=== PATIENT | male | born 1990 | race Caucasian/White ===

== ENCOUNTER 2023-04-03 00:28 | Emergency (ER) | payer SELFPAY ==
[~2023-04-03] VITALS: Ht 175.3 cm; Wt 67.8 kg
[2023-04-03 00:30] VITALS: TEMP 98.4
[2023-04-03] MEDS ORDERED: ondansetron 4mg rapidly disintigrating tab PO ONE (00:50)
[2023-04-03] MEDS ORDERED: acetaminophen 1,000mg/100ml IV 100 ML IV ONE (01:10)
[2023-04-03] MEDS ORDERED: metoclopramide 5 mg/ml inj IV ONE (01:10)
[2023-04-03] MEDS ORDERED: ONDA8TAB13 PO (01:42)
[2023-04-03 01:53] VITALS: BP 107/73; PULSE 94; RESP 16; O2SAT 99
== END 2023-04-03 02:06 | disposition home or self-care (01) ==
LOC: ER 00:29
DX: A08.4 Viral intestinal infection, unspecified (principal); R11.2 Nausea with vomiting, unspecified; R10.9 Unspecified abdominal pain; G35 Multiple sclerosis; F17.200 Nicotine dependence, unspecified, uncomplicated; Z79.899 Other long term (current) drug therapy
CPT/HCPCS: 99283